=== PATIENT | female | born 1985 | race Two or more races ===

== ENCOUNTER 2023-12-20 21:23 | Inpatient (IN) | payer OTHER ==
[2023-12-20 21:31] VITALS: BMI 23.1
[2023-12-20 22:51] LABS: BASO % 0.5 % (0-2.0); EOS % 0.5 % (0-4.5); HEMATOCRIT 37.5 % (32.4-45.2); HEMOGLOBIN 12.6 GM/dL (10.7-15.3); LYMPH % 10.4 % (8-40); MCH 30.5 pg (25.7-33.7); MCHC 33.5 g/dl (32.0-36.0); MEAN CELL VOLUME 90.9 fl (80-96); MEAN PLT VOLUME 7.2 fl (7.5-11.1); MONO % 6.7 % (3.8-10.2); NEUT % 81.9 % (42.8-82.8); PLATELET COUNT 395 10^3/uL (134-434); RBC 4.12 M/mm3 (3.60-5.2); RDW 15.7 % (11.6-15.6); WHITE BLOOD COUNT 8.6 K/mm3 (4.0-10.0)
[2023-12-20 22:58] LABS: INR 0.95 (0.83-1.09); PROTHROMBIN TIME (PATIENT) 10.9 SEC (9.7-13.0)
[2023-12-20 23:01] LABS: ACTIVATED PTT 26.8 SECONDS (25.2-36.5)
[2023-12-20 23:08] LABS: POTASSIUM 4.1 mmol/L (3.5-5.1)
[2023-12-20 23:10] LABS: CALCIUM 8.9 mg/dL (8.5-10.1)
[2023-12-20 23:11] LABS: ALBUMIN 3.1 g/dl (3.4-5.0); BLOOD UREA NITROGEN 16.3 mg/dL (7-18)
[2023-12-20 23:12] LABS: CREATININE 0.5 mg/dL (0.55-1.3)
[2023-12-20 23:15] LABS: BILIRUBIN,TOTAL 0.4 mg/dL (0.2-1); TOT PROT 7.4 g/dl (6.4-8.2)
[2023-12-21] MEDS ORDERED: HEPARIN NA (PORCINE) 5,000 UNITS/ML 1ML VIAL IVPUSH PRN ×4 (00:22→00:57)
[2023-12-21] MEDS ORDERED: HEPARIN INFUSION - 25,000 UNITS/500 ML INFUS.BAG IVPB ONE (00:50)
[2023-12-21] MEDS ORDERED: ACETAMINOPHEN 325 MG TABLET (FP) ONE (00:55)
[2023-12-21] MEDS: HEPARIN NA (PORCINE) 5,000 UNITS/ML 1ML VIAL IVPUSH ONE (01:04)
[2023-12-21] MEDS: HEPARIN INFUSION - 25,000 UNITS/500 ML INFUS.BAG IVPB SCH (01:06)
[2023-12-21] MEDS: ACETAMINOPHEN 325 MG TABLET (FP) PO ONE (01:06)
[2023-12-21] MEDS: ACETAMINOPHEN 1000 MG/100 ML BAG IVPB ONE (01:06)
[2023-12-21] MEDS: ACETAMINOPHEN 500 MG TABLET (FP) PO ONE (01:07)
[2023-12-21] MEDS: HEPARIN - 25,000 UNIT in SODIUM CHLORIDE 495 ML IV SCH (01:07)
[2023-12-21 02:43] LABS: EPI CELLS 21 /uL (0-25.1); HYALINE CASTS 2 /uL (0-3.1); PH,URINE 5.5 (5.0-8.0); URINE APPEARANCE CLOUDY; URINE BACTERIA 7719 /uL (0-1359); URINE BILIRUBIN NEGATIVE (NEGATIVE); URINE COLOR YELLOW; URINE GLUCOSE (UA) NEGATIVE (NEGATIVE); URINE KETONE 1+ (NEGATIVE); URINE LEUK ESTERASE NEGATIVE (NEGATIVE); URINE NITRITE POSITIVE (NEGATIVE); URINE PROTEIN 1+ (NEGATIVE); URINE RBC 19 /uL (0-23.9); URINE WBC 34 /uL (0-25.8)
[2023-12-21 06:16] LABS: BASO % 0.5 % (0-2.0); EOS % 1.5 % (0-4.5); HEMATOCRIT 34.5 % (32.4-45.2); HEMOGLOBIN 11.6 GM/dL (10.7-15.3); LYMPH % 22.3 % (8-40); MCH 30.9 pg (25.7-33.7); MCHC 33.5 g/dl (32.0-36.0); MEAN CELL VOLUME 92.2 fl (80-96); MEAN PLT VOLUME 7.6 fl (7.5-11.1); NEUT % 68.7 % (42.8-82.8); PLATELET COUNT 360 10^3/uL (134-434); RBC 3.74 M/mm3 (3.60-5.2); RDW 15.1 % (11.6-15.6); WHITE BLOOD COUNT 8.4 K/mm3 (4.0-10.0)
[2023-12-21 06:33] LABS: POTASSIUM 3.2 mmol/L (3.5-5.1)
[2023-12-21 06:36] LABS: ALBUMIN 2.9 g/dl (3.4-5.0); BLOOD UREA NITROGEN 15.8 mg/dL (7-18)
[2023-12-21 06:40] LABS: CREATININE 0.5 mg/dL (0.55-1.3)
[2023-12-21 06:42] LABS: BILIRUBIN,TOTAL 0.3 mg/dL (0.2-1); TOT PROT 6.5 g/dl (6.4-8.2)
[2023-12-21] MEDS ORDERED: CEFTRIAXONE 1 GM/50 ML BAG ONE (10:26)
[2023-12-21] MEDS: CEFTRIAXONE 1 GM in DEXTROSE 5%-WATER - 50 ML IVPB SCH (10:30)
[2023-12-21] MEDS ORDERED: ACETAMINOPHEN 500 MG TABLET (FP) ONE (15:27)
[2023-12-21] MEDS: ACETAMINOPHEN 500 MG TABLET (FP) PO PRN (15:29)
[2023-12-21] MEDS ORDERED: ENOXAPARIN NA (PORCINE) 80 MG/0.8 ML DISP.SYRIN SQ ONE ×2 (17:47→22:09)
[2023-12-21] MEDS: ENOXAPARIN NA (PORCINE) 80 MG/0.8 ML DISP.SYRIN SQ SCH (17:52)
[2023-12-22 04:02] VITALS: RESP 18
[2023-12-22 10:08] LABS: HEMATOCRIT 32.7 % (32.4-45.2); HEMOGLOBIN 11.2 GM/dL (10.7-15.3); MCHC 34.3 g/dl (32.0-36.0); MEAN CELL VOLUME 90.5 fl (80-96); MEAN PLT VOLUME 7.4 fl (7.5-11.1); PLATELET COUNT 360 10^3/uL (134-434); RBC 3.61 M/mm3 (3.60-5.2); WHITE BLOOD COUNT 6.6 K/mm3 (4.0-10.0)
[2023-12-22 10:13] LABS: POTASSIUM 3.9 mmol/L (3.5-5.1)
[2023-12-22 10:17] LABS: CALCIUM 8.4 mg/dL (8.5-10.1)
[2023-12-22 10:18] LABS: BLOOD UREA NITROGEN 15.1 mg/dL (7-18); MAGNESIUM 2.1 mg/dL (1.8-2.4)
[2023-12-22 10:21] LABS: CREATININE 0.4 mg/dL (0.55-1.3); PHOSPHOROUS 3.4 mg/dL (2.5-4.9)
[2023-12-23 10:27] LABS: BASO % 0.8 % (0-2.0); HEMATOCRIT 31.9 % (32.4-45.2); LYMPH % 20.5 % (8-40); MCH 31.6 pg (25.7-33.7); MCHC 34.6 g/dl (32.0-36.0); MEAN CELL VOLUME 91.4 fl (80-96); MEAN PLT VOLUME 7.2 fl (7.5-11.1); MONO % 7.8 % (3.8-10.2); NEUT % 69.9 % (42.8-82.8); PLATELET COUNT 374 10^3/uL (134-434); RBC 3.49 M/mm3 (3.60-5.2); RDW 14.6 % (11.6-15.6); WHITE BLOOD COUNT 7.3 K/mm3 (4.0-10.0)
[2023-12-23 10:53] LABS: POTASSIUM 3.9 mmol/L (3.5-5.1)
[2023-12-23 11:08] LABS: BLOOD UREA NITROGEN 12.2 mg/dL (7-18)
[2023-12-23 11:09] LABS: CALCIUM 8.9 mg/dL (8.5-10.1)
[2023-12-23 11:10] LABS: ALBUMIN 2.6 g/dl (3.4-5.0)
[2023-12-23 11:11] LABS: CREATININE 0.4 mg/dL (0.55-1.3); MAGNESIUM 2.1 mg/dL (1.8-2.4); PHOSPHOROUS 3.8 mg/dL (2.5-4.9)
[2023-12-23 11:12] LABS: TOT PROT 6.3 g/dl (6.4-8.2)
[2023-12-23 11:13] LABS: BILIRUBIN,TOTAL 0.4 mg/dL (0.2-1)
[2023-12-23] MEDS ORDERED: ERTAPENEM SODIUM 1 GM in SODIUM CHLORIDE 50 ML IVPB SCH (13:30)
[2023-12-23] MEDS: AMOX TR/POT CLAV 875MG/125MG TABLETS (FP) PO ONE (13:51)
[2023-12-23 18:20] VITALS: BP 115/67; PULSE 78; TEMP 98.6
== END 2023-12-23 21:22 | disposition home or self-care (01) | DRG 566 ==
LOC: JER 21:23 → JERBED 12-21 00:30 → J5S 12-21 23:16
PROVIDERS: ADMIT Internal Medicine; ATTEND Internal Medicine
DX: O22.31 Deep phlebothrombosis in pregnancy, first trimester (principal); I82.412 Acute embolism and thrombosis of left femoral vein; I82.432 Acute embolism and thrombosis of left popliteal vein; O99.891 Other specified diseases and conditions complicating pregnancy; M79.605 Pain in left leg; Z3A.12 12 weeks gestation of pregnancy
CPT/HCPCS: 36415; 76815; 76815-TC; 80048; 80053; 81003; 83735; 84100; 84702; 85025; 85027; 85610; 85730; 86850; 86900; 86901; 87086; 87186; 93005; 93010; 93306-TC; 93971-LT; 93971-TC; 99285-25; J1644

== ENCOUNTER 2023-12-28 20:52 | Emergency (ER) | payer OTHER ==
[2023-12-28 20:59] VITALS: BP 117/77; PULSE 76; RESP 18; TEMP 98.3; BMI 24.6
[2023-12-28] MEDS ORDERED: ACETAMINOPHEN 325 MG TABLET (FP) ONE (21:37)
[2023-12-28] MEDS ORDERED: ENOXAPARIN NA (PORCINE) 80 MG/0.8 ML DISP.SYRIN SQ ONE (21:38)
[2023-12-28] MEDS: ENOXAPARIN NA (PORCINE) 80 MG/0.8 ML DISP.SYRIN SQ ONE (21:44)
[2023-12-28] MEDS: ACETAMINOPHEN 500 MG TABLET (FP) PO ONE (21:45)
== END 2023-12-28 22:05 | disposition home or self-care (01) ==
LOC: JER 20:52
PROC: 3E013GC Introduction of Other Therapeutic Substance into Subcutaneous Tissue, Percutaneous Approach (ICD-10-PCS; principal; 2023-12-28)
DX: O22.31 Deep phlebothrombosis in pregnancy, first trimester (principal); I82.402 Acute embolism and thrombosis of unspecified deep veins of left lower extremity; Z79.01 Long term (current) use of anticoagulants; Z3A.13 13 weeks gestation of pregnancy; Z76.0 Encounter for issue of repeat prescription
CPT/HCPCS: 76815; 99284-25

== ENCOUNTER 2023-12-30 22:36 | Inpatient (IN) | payer OTHER ==
[2023-12-31] MEDS: ACETAMINOPHEN 1000 MG/100 ML BAG IVPB ONE (01:13)
[2023-12-31 01:19] LABS: BASO % 1.4 % (0-2.0); EOS % 1.8 % (0-4.5); HEMATOCRIT 31.9 % (32.4-45.2); MCH 30.9 pg (25.7-33.7); MCHC 34.3 g/dl (32.0-36.0); MEAN CELL VOLUME 90.1 fl (80-96); MEAN PLT VOLUME 6.8 fl (7.5-11.1); MONO % 6.8 % (3.8-10.2); PLATELET COUNT 472 10^3/uL (134-434); RBC 3.54 M/mm3 (3.60-5.2); RDW 14.5 % (11.6-15.6)
[2023-12-31 01:36] LABS: CALCIUM 8.5 mg/dL (8.5-10.1)
[2023-12-31 01:37] LABS: ALBUMIN 2.5 g/dl (3.4-5.0); BLOOD UREA NITROGEN 17.5 mg/dL (7-18)
[2023-12-31 01:40] LABS: CREATININE 0.8 mg/dL (0.55-1.3)
[2023-12-31 01:42] LABS: BILIRUBIN,TOTAL 0.2 mg/dL (0.2-1); TOT PROT 6.4 g/dl (6.4-8.2)
[2023-12-31 02:18] LABS: INR 1.06 (0.83-1.09); PROTHROMBIN TIME (PATIENT) 12.2 SEC (9.7-13.0)
[2023-12-31 02:21] LABS: ACTIVATED PTT 30.6 SECONDS (25.2-36.5)
[2023-12-31] MEDS ORDERED: ENOXAPARIN NA (PORCINE) 80 MG/0.8 ML DISP.SYRIN SQ ONE (10:25)
[2023-12-31] MEDS: ENOXAPARIN NA (PORCINE) 80 MG/0.8 ML DISP.SYRIN SQ SCH (10:45)
[2023-12-31] MEDS ORDERED: ACETAMINOPHEN INJECTION 100 ML IVPB ONE ×2 (11:19)
[2023-12-31] MEDS: ACETAMINOPHEN 1000 MG/100 ML BAG IVPB PRN (11:36)
[2023-12-31 23:25] VITALS: BMI 24.6
[2024-01-01 09:44] LABS: BASO % 1.2 % (0-2.0); EOS % 3.4 % (0-4.5); HEMATOCRIT 31.5 % (32.4-45.2); HEMOGLOBIN 10.7 GM/dL (10.7-15.3); LYMPH % 29.7 % (8-40); MCH 30.7 pg (25.7-33.7); MCHC 34.1 g/dl (32.0-36.0); MEAN PLT VOLUME 7.2 fl (7.5-11.1); MONO % 7.3 % (3.8-10.2); NEUT % 58.4 % (42.8-82.8); PLATELET COUNT 444 10^3/uL (134-434); RDW 14.5 % (11.6-15.6); WHITE BLOOD COUNT 5.8 K/mm3 (4.0-10.0)
[2024-01-01 10:11] LABS: POTASSIUM 4.4 mmol/L (3.5-5.1)
[2024-01-01 10:14] LABS: BLOOD UREA NITROGEN 14.4 mg/dL (7-18); CALCIUM 8.5 mg/dL (8.5-10.1)
[2024-01-01 10:15] LABS: ALBUMIN 2.4 g/dl (3.4-5.0)
[2024-01-01 10:17] LABS: CREATININE 0.5 mg/dL (0.55-1.3)
[2024-01-01 10:19] LABS: BILIRUBIN,TOTAL 0.3 mg/dL (0.2-1)
[2024-01-01] MEDS: ACETAMINOPHEN 325 MG TABLET (FP) PO PRN (22:27)
[2024-01-03 06:41] VITALS: RESP 20; TEMP 98.2
[2024-01-03 08:49] LABS: BASO % 1.3 % (0-2.0); HEMATOCRIT 32.3 % (32.4-45.2); HEMOGLOBIN 11.2 GM/dL (10.7-15.3); LYMPH % 32.4 % (8-40); MCH 31.2 pg (25.7-33.7); MCHC 34.5 g/dl (32.0-36.0); MEAN CELL VOLUME 90.4 fl (80-96); MEAN PLT VOLUME 7.2 fl (7.5-11.1); MONO % 10.6 % (3.8-10.2); NEUT % 52.7 % (42.8-82.8); PLATELET COUNT 476 10^3/uL (134-434); RBC 3.58 M/mm3 (3.60-5.2); WHITE BLOOD COUNT 5.4 K/mm3 (4.0-10.0)
[2024-01-03 09:14] LABS: POTASSIUM 4.9 mmol/L (3.5-5.1)
[2024-01-03 10:10] LABS: CALCIUM 8.6 mg/dL (8.5-10.1)
[2024-01-03 10:11] LABS: ALBUMIN 2.4 g/dl (3.4-5.0); MAGNESIUM 1.9 mg/dL (1.8-2.4)
[2024-01-03 10:14] LABS: CREATININE 0.5 mg/dL (0.55-1.3)
[2024-01-03 10:16] LABS: BILIRUBIN,TOTAL 0.3 mg/dL (0.2-1); TOT PROT 6.3 g/dl (6.4-8.2)
[2024-01-03] MEDS: PRENATAL VITAMINS W/ FOLIC ACID TABLET (FP) PO SCH (14:15)
[2024-01-03 15:16] VITALS: BP 104/65; PULSE 68
== END 2024-01-03 15:37 | disposition home or self-care (01) | DRG 566 ==
LOC: JER 22:36 → JERBED 12-31 07:10 → OBSVTOIN 12-31 09:11 → J8W 12-31 20:01
PROVIDERS: ADMIT Internal Medicine; ATTEND Nurse Practitioner Family
DX: O22.32 Deep phlebothrombosis in pregnancy, second trimester (principal); I82.402 Acute embolism and thrombosis of unspecified deep veins of left lower extremity; Z3A.15 15 weeks gestation of pregnancy; R82.71 Bacteriuria
CPT/HCPCS: 36415; 80053; 83735; 85025; 85610; 85730; 86850; 86900; 86901; 93005; 93010; 93306-TC; 93971-TC; 97116-GP; 97161-GP; 99285-25; G0378; J0131